=== PATIENT | female | born 1965 | race Caucasian/White ===

== ENCOUNTER 2016-12-21 14:21 | Outpatient (CLI) | payer OTHER ==
--- NOTE | 2016-12-21 22:11 | RAD ---
LUMBAR SPINE THREE VIEWS 12/21/2016 FINDINGS: No fracture or dislocation is seen. The only disk space that might be a little narrow is L2-L3. The bones otherwise show no acute change. The SI joints are symmetrical. Degenerative changes are tami y minimal. IMPRESSION: No acute findings. POS: HOME
== END 2016-12-21 14:22 | disposition home or self-care (01) ==
LOC: BURRAD 14:21
PROVIDERS: ATTEND Family Medicine
DX: M54.5 Low back pain (principal)
CPT/HCPCS: 72100

== ENCOUNTER 2021-04-07 01:57 | Emergency (ER) | payer OTHER ==
[2021-04-07 02:32] LABS: #Eosinphils 0.1 thou/uL (0.0-0.7); #Lymphocytes 2.2 thou/uL (1.20-3.40); #Monocytes 0.8 thou/uL (0.11-0.59); %Basophils 0.6 % (0.0-1.0); %Eosinophils 1.3 % (0.0-10.0); %Lymphocytes 30.1 % (21.0-51.0); %Monocytes 11.5 % (0.0-10.0); %Neutrophils 56.5 % (42.0-75.0); Hemoglobin 12.9 g/dL (12.0-16.0); Mean Corpuscular Hemoglobin 26.9 pg (27.0-31.0); Mean Corpuscular Volume 86.7 fL (78.0-98.0); Mean Platelet Volume 7.7 fL (7.4-10.4); Platelet Count 244 thou/uL (130-400); RBC Distribution Width 12.9 % (11.5-14.5); Red Blood Cell (RBC) Count 4.79 mill/uL (4.20-5.40); White Blood Cell (WBC) Count 7.1 thou/uL (4.8-10.8)
[2021-04-07] MEDS ORDERED: Ondansetron ODT 4 MG TAB ONE (02:34)
[2021-04-07 02:52] LABS: ALT (SGPT) 22 U/L (8-55); AST (SGOT) 16 U/L (5-34); Alkaline Phosphatase 64 U/L (40-110); Anion Gap 14 mmol/L (10-20); BUN (Urea Nitrogen) 18 mg/dL (9.8-20.1); Bilirubin, Total 0.3 mg/dL (0.2-1.2); CK (CPK) 95 U/L (29-168); Calc. Creatinine Clearance 0 mL/min (70-130); Calcium 9.2 mg/dL (7.8-10.44); Carbon Dioxide 23 mmol/L (22-29); Chloride 107 mmol/L (98-107); Globulin 2.8 g/dL (2.4-3.5); Glucose 105 mg/dL (70-105); Lipase 43 U/L (8-78); Potassium 3.7 mmol/L (3.5-5.1); Protein, Total 6.8 g/dL (6.0-8.3); Sodium 140 mmol/L (136-145)
[2021-04-07 04:25] LABS: Troponin I Less than 0.010 ng/mL (< 0.028)
[2021-04-07] MEDS ORDERED: Mag-Al Plus 1200 MG/1200 MG/120 MG/30 ML UDCUP ONE (04:41)
[2021-04-07] MEDS ORDERED: Aspirin Chewable 81 MG TAB ONE (04:41)
[2021-04-07] MEDS ORDERED: Lidocaine Viscous Sol 2% 15 ml UD Cup ONE (04:41)
== END 2021-04-07 05:11 | disposition home or self-care (01) ==
LOC: BURERS 01:57
DX: R07.89 Other chest pain (principal); R11.2 Nausea with vomiting, unspecified
CPT/HCPCS: 36415; 80053; 82550; 83690; 83880; 84484; 85025; 93005; Q0162

== ENCOUNTER 2021-11-09 06:33 | Emergency (ER) | payer BC ==
[2021-11-09 07:13] LABS: Bilirubin Negative (Negative); Blood, Urine Small (Negative); Clarity Clear (Clear); Glucose, Urine (Dipstick) Negative (Negative); Ketone, Urine Negative (Negative); Leukocyte Small (Negative); Nitrite Positive (Negative); Protein, Urine (Dipstick) Negative (Neg-Trace); Specific Gravity, Urine 1.025 (1.005-1.030); Urobilinogen 0.2 mg/dL (Less than 2)
[2021-11-09 07:21] LABS: Bacteria/HPF 3+ HPF (None Seen); RBC/HPF 0-3 HPF (0-3); WBC/HPF 21-50 HPF (0-3)
[2021-11-09] MEDS ORDERED: cefTRIAXone\\ROCEPHIN 1 GM VIAL ONE (07:21)
[2021-11-09] MEDS ORDERED: Sodium Chloride 0.9% 100 ML ONE (07:22)
[2021-11-09 07:23] LABS: #Basophils 0.1 thou/uL (0.0-0.2); #Eosinphils 0.1 thou/uL (0.0-0.7); #Monocytes 0.5 thou/uL (0.11-0.59); #Neutrophils 2.5 thou/uL (1.40-6.50); %Basophils 1.1 % (0.0-1.0); %Eosinophils 2.9 % (0.0-10.0); %Lymphocytes 38.9 % (21.0-51.0); %Monocytes 9.6 % (0.0-10.0); %Neutrophils 47.6 % (42.0-75.0); Hemoglobin 12.9 g/dL (12.0-16.0); Mean Corpuscular HGB CONC 31.4 g/dL (32.0-36.0); Mean Corpuscular Hemoglobin 27.3 pg (27.0-31.0); Mean Corpuscular Volume 87.1 fL (78.0-98.0); Mean Platelet Volume 6.7 fL (7.4-10.4); Platelet Count 253 thou/uL (130-400); RBC Distribution Width 13.3 % (11.5-14.5); White Blood Cell (WBC) Count 5.2 thou/uL (4.8-10.8)
[2021-11-09 07:45] LABS: ALT (SGPT) 19 U/L (8-55); AST (SGOT) 12 U/L (5-34); Alkaline Phosphatase 58 U/L (40-110); Anion Gap 14 mmol/L (10-20); BUN (Urea Nitrogen) 18 mg/dL (9.8-20.1); Bilirubin, Total 0.3 mg/dL (0.2-1.2); Calc. Creatinine Clearance 0 mL/min (70-130); Calcium 8.7 mg/dL (7.8-10.44); Carbon Dioxide 23 mmol/L (22-29); Chloride 109 mmol/L (98-107); Globulin 3.1 g/dL (2.4-3.5); Glucose 105 mg/dL (70-105); Lipase 43 U/L (8-78); Protein, Total 7.1 g/dL (6.0-8.3); Sodium 142 mmol/L (136-145)
== END 2021-11-09 09:24 | disposition home or self-care (01) ==
LOC: BURERS 06:33
DX: N10 Acute pyelonephritis (principal); Z87.442 Personal history of urinary calculi; Z87.891 Personal history of nicotine dependence
CPT/HCPCS: 74176; 80053; 81003; 81015; 83605; 83690; 84484; 85025; 87077; 87086; 87186; 96365; J0696; J3490

== ENCOUNTER 2022-11-22 17:35 | Emergency (ER) | payer BC ==
[2022-11-22] MEDS ORDERED: Acetaminophen 500 MG TAB ONE (17:54)
== END 2022-11-22 18:37 | disposition home or self-care (01) ==
LOC: BURERS 17:35
DX: T54.91XA Toxic effect of unspecified corrosive substance, accidental (unintentional), initial encounter (principal); J68.0 Bronchitis and pneumonitis due to chemicals, gases, fumes and vapors; Y92.002 Bathroom of unspecified non-institutional (private) residence as the place of occurrence of the external cause; Z87.891 Personal history of nicotine dependence
CPT/HCPCS: 71046; 93005

== ENCOUNTER 2025-06-13 07:01 | Emergency (ER) | payer BC ==
[2025-06-13 07:40] LABS: Hematocrit 43.4 % (36.0-47.0); Hemoglobin 14.6 g/dL (12.0-16.0); Mean Corpuscular Hemoglobin 27.8 pg (27.0-31.0); Mean Corpuscular Volume 82.6 fl (78.0-98.0); Platelet Count 228 10x3/uL (130-400); Red Blood Cell (RBC) Count 5.25 mill/uL (4.20-5.40); White Blood Cell (WBC) Count 8.1 10x3/uL (4.8-10.8)
[2025-06-13 07:50] LABS: ALT (SGPT) 18 U/L (Less than 34); AST (SGOT) 15 U/L (11-34); Albumin 4.2 g/dL (3.1-4.5); Alkaline Phosphatase 71 U/L (40-110); Anion Gap 16 mmol/L (10-20); BUN (Urea Nitrogen) 16 mg/dL (9.8-20.1); Bilirubin, Total 0.3 mg/dL (0.3-1.2); Calc. Creatinine Clearance 0 mL/min (70-130); Calcium 9.4 mg/dL (7.8-10.44); Carbon Dioxide 21 mmol/L (23-31); Chloride 108 mmol/L (98-107); Globulin 2.7 g/dL (2.4-3.5); Glucose 135 mg/dL (80-115); Potassium 4.1 mmol/L (3.5-5.1); Sodium 141 mmol/L (136-145); Troponin I Less than 0.010 ng/mL (< 0.028)
[2025-06-13] MEDS ORDERED: Aspirin Chewable 81 MG TAB ONE (08:07)
[2025-06-13 08:08] LABS: MDiff Complete? YES; Platelet Adequacy Comment Appears Adequate
[2025-06-13 09:26] LABS: Glucose, Urine (Dipstick) Negative (Negative); Leukocyte Trace (Negative); Protein, Urine (Dipstick) Negative (Neg-Trace); Specific Gravity, Urine 1.010 (1.005-1.030)
[2025-06-13 09:46] LABS: CAUTI Indications for Culture Pelvic or flank pain; RBC/HPF None Seen HPF (0-3)
[2025-06-13 09:47] LABS: Bacteria/HPF 1+ HPF (None Seen)
[2025-06-13 09:48] LABS: Urine Culture Reflex No No
[2025-06-13] MEDS ORDERED: Iopamidol 370 76% 100 ML VIAL ONE (13:06)
[2025-06-13 13:20] LABS: Troponin I Less than 0.010 ng/mL (< 0.028)
== END 2025-06-13 15:58 | disposition short-term general hospital (02) ==
LOC: BURERS 07:01
DX: R07.9 Chest pain, unspecified (principal); E11.9 Type 2 diabetes mellitus without complications; Z87.891 Personal history of nicotine dependence; Z79.4 Long term (current) use of insulin
CPT/HCPCS: 36415; 71045; 71275; 80053; 81001; 83605; 84484; 85025; 85379; 93005; Q9967